=== PATIENT | male | born 1945 | race Caucasian/White ===

== ENCOUNTER 2024-10-21 12:03 | Outpatient (CLI) | payer MEDICARE, OTHER ==
--- NOTE | 2024-10-21 18:33 | RADIOLOGY REPORT ---
EXAM: CT CT LOWER EXTREMITY INDICATION: EFFUSION RIGHT ANKLE TECHNIQUE: Axial images of right lower extremity have been obtained along with coronal and sagittal r eformatted images. All CT scans at this facility use dose modulation, iterative reconstruction, and/o r weight based dosing when appropriate to reduce radiation dose to as low as reasonably achievable. COMPARISON: None FINDINGS: BONES: Significant comminuted, impacted intra-articular fracture of the calcaneus with fracture exten mayo into the posterior subtalar joint, anterior subtalar joint. Collapse of the posterior subtalar joint. No fracture of the talar dome. Fracture extension into the calcaneocuboid articulation. Fract ure of the anterior process of the calcaneus. MUSCLES: Minimal fatty infiltration along the intrinsic musculature of the foot/ ankle. Fatty infilt ration of the extensor digitorum brevis JOINT SPACES: No joint effusion. TENDONS/LIGAMENTS: Intact. OTHER: Vascular calcifications. Mild surrounding subcutaneous tissue IMPRESSION: 1. Significant comminuted, impacted intra-articular fracture of the calcaneus with fracture extension into the posterior subtalar joint, anterior subtalar joint. Collapse of the posterior subtalar join t. No fracture of the talar dome. Fracture extension into the calcaneocuboid articulation. Fracture of the anterior process of the calcaneus.
== END 2024-10-21 23:59 | disposition home or self-care (01) ==
LOC: RAD 12:03
PROVIDERS: ATTEND Podiatrist Foot & Ankle Surgery
DX: S92.062A Displaced intraarticular fracture of left calcaneus, initial encounter for closed fracture (principal); M25.471 Effusion, right ankle; X58.XXXA Exposure to other specified factors, initial encounter; Y93.89 Activity, other specified; Y92.89 Other specified places as the place of occurrence of the external cause; Y99.8 Other external cause status
CPT/HCPCS: 73700